=== PATIENT | female | born 1990 | race Caucasian/White ===

== ENCOUNTER 2019-12-20 00:33 | Outpatient (CLI) | payer BC, SELFPAY ==
[2019-12-20 18:40] LABS: SARS-CoV-2 RNA PCR Negative
== END 2019-12-20 00:34 | disposition home or self-care (01) ==
LOC: ANHCOVIDDT 00:33
PROVIDERS: PCP Internal Medicine; Visit Provider Obstetrics & Gynecology
DX: Z01.818 Encounter for other preprocedural examination (principal); Z11.59 Encounter for screening for other viral diseases
CPT/HCPCS: 87635; C9803; U0003

== ENCOUNTER 2019-12-20 09:46 | Outpatient (CLI) | payer BC, SELFPAY ==
[2019-12-20 10:06] LABS: Basophils Percent Auto 0.3 % (0.2-1.2); Eosinophils Absolute Auto 0.1 K/mm3 (0-0.3); Eosinophils Percent Auto 1.4 % (0-4.4); Hematocrit 37.6 % (37.0-47.0); Hemoglobin 12.6 g/dL (12.0-15.0); Immature Granulocyte Absolute 0.01 K/mm3 (0.00-0.031); Immature Granulocyte Percent A 0.2 % (0-0.5); Lymphocytes Absolute Auto 2.21 K/mm3 (0.9-3.2); Lymphocytes Percent Auto 35.4 % (18.3-44.2); Mean Corpuscular HGB Conc 33.5 g/dl (32-36); Mean Corpuscular Hemoglobin 28.8 pg (26-34); Mean Platelet Volume 10.3 fl (7.4-10.4); Monocytes Absolute Auto 0.5 K/mm3 (0.1-0.6); Monocytes Percent Auto 8.5 % (2.6-8.5); Neutrophils Absolute Auto 3.4 K/mm3 (1.3-6.7); Neutrophils Percent Auto 54.2 % (45.5-73.1); Platelet Count Result 238 k/mm3 (150-375); Red Blood Count 4.37 M/mm3 (4.2-5.4); White Blood Count 6.2 K/mm3 (4.5-10.0)
== END 2019-12-20 09:47 | disposition home or self-care (01) ==
PROVIDERS: PCP Internal Medicine; Visit Provider Obstetrics & Gynecology
DX: Z01.818 Encounter for other preprocedural examination (principal); R10.2 Pelvic and perineal pain
CPT/HCPCS: 36415; 85025; 86850; 86900; 86901

== ENCOUNTER 2019-12-23 01:08 | Day surgery (SDC) | payer BC, SELFPAY ==
[2019-12-19 09:22] VITALS: BMI 26.4
--- NOTE | 2019-12-22 07:17 | PM.IMHP ---
H&P: HPI History of Present Illness Chief complaint: Pelvic Pain, Irregular Bleeding, Enlarged Uterus, Narrative: Leanna Dewey is a 29 year old female 3 para 3 who is admitted for robotic hysterectomy and bilateral salpingectomy. She has continued with severe pain dyspareunia and bleeding the been refractory to medical therapy. She has a history of endometriosis. She refused any further medical treatment as all other treatments have failed. Risks and benefits reviewed including but not exclusive of , aspiration pneumonia, bleeding, transfusion, perforation injury to bowel, bladder, ureters, or other internal organs with need for laparotomy. She voiced good understanding. She had all questions answered. She asked to proceed Review of Systems Review of Systems: All systems reviewed & are unremarkable except as noted in HPI and below PMFSH Family History Family History Other Hypertension Social History Social History Smoking status: Never smoker Alcohol intake: current Meds Home Medications and Allergies Home Medications Medication Instructions Recorded Confirmed Type No Home Medications 12/19/19 12/19/19 History Allergies Allergy/AdvReac Type Severity Reaction Status Date / Time Penicillins Allergy Unknown Hives Verified 12/19/19 09:23 Exam Const: General: no acute distress Eyes: General: appearance normal, both eyes and all related structures Neck: Neck: supple and no JVD Thyroid: thyroid normal Resp: Effort & Inspection: normal respiratory effort Auscultation: clear to auscultation bilaterally Cardio: Rate: regular rate Rhythm: regular rhythm GI: Inspection: non-distended GI Palp: Yes Soft to palpation, No Tenderness to palpation present (GI) and No Guarding due to palpation present (GI) Auscultation: normal bowel sounds : General: Yes bladder normal to inspection External Female Exam: normal appearance of the urethra Speculum Exam - Vagina: normal appearance of the vagina Speculum Exam - Cervix: normal appearance of the cervix and Cervical tenderness present Bimanual exam- vagina & uterus: normal bimanual exam ( the uterus is enlarged and extremely tender) Bimanual Exam- Adnexa, other: tender Skin: General skin exam: no rashes or lesions noted Extrem: General: normal to inspection and no edema Psych: Mental Status: mental status grossly normal Affect: normal affect Assessment and Plan Additional Plan impression: Pelvic pain /enlarged uterus / dyspareunia / bleeding refractory to medical therapy Plan: Roboti
--- NOTE | 2019-12-22 07:23 | P.HP_ITS ---
H&P: HPI History of Present Illness Chief complaint: Pelvic Pain, Irregular Bleeding, Enlarged Uterus, Narrative: Leanna Dewey is a 29 year old female was admitted for robotic total vaginal direct median bilateral salpingectomies. She complains of irregular bleeding pain enlarged uterus and dyspareunia. Alte rnatives have been reviewed and she has had no success with medical therapy. Risks and benefits including but not exclusive of , aspiration pneumonia, bleeding, transfusion, perforation injury to bowel, bladder, ureters, or other internal organs with need for open laparotomy. She voiced good understanding. She had all questions answered. She received the [employer] handout entitled hysterectomy as well as div inch E handout. She asked to proceed Review of Systems Review of Systems: All systems reviewed & are unremarkable except as noted in HPI and below PMFSH Family History Family History Other Hypertension Social History Social History Smoking status: Never smoker Alcohol intake: current Meds Home Medications and Allergies Home Medications Medication Instructions Recorded Confirmed Type No Home Medications 12/19/19 12/19/19 History Allergies Allergy/AdvReac Type Severity Reaction Status Date / Time Penicillins Allergy Unknown Hives Verified 12/19/19 09:23 Exam Const: General: no acute distress Eyes: General: appearance normal, both eyes and all related structures Neck: Neck: supple and no JVD Thyroid: thyroid normal Resp: Effort & Inspection: normal respiratory effort Auscultation: clear to auscultation bilaterally Cardio: Rate: regular rate Rhythm: regular rhythm GI: Inspection: non-distended GI Palp: Yes Soft to palpation, No Tenderness to palpation present (GI) and No Guarding due to palpation present (GI) Auscultation: normal bowel sounds : General: Yes bladder normal to inspection External Female Exam: normal external appearance Speculum Exam - Vagina: normal appearance of the vagina, vaginal bleeding and tenderness Speculum Exam - Cervix: normal appearance of the cervix and Cervical tenderness present Bimanual exam- vagina & uterus: uterine size normal ( uterus enlarged and very tender) Bimanual Exam- Adnexa, other: tender Skin: General skin exam: no rashes or lesions noted Extrem: General: normal to inspection and no edema Psych: Mental Status: mental status grossly normal Affect: normal affect Assessment and Plan Additional Plan impression: Enlarged uterus /pelvic pain / dyspareunia /bleeding refractory to medical therapy Plan: Robotic total vaginal hysterectomy and bilateral salpingectomies
[2019-12-23] VITALS (18 sets, daily range): BP systolic 80–115; BP diastolic 44–69; PULSE 67–96; RESP 12–19; TEMP 36.4–37.1; O2SAT 95–100
--- NOTE | 2019-12-23 06:41 | WPDHPUPDATE1 ---
History and Physical Update Update Date/Time: 12/23/19 06:41 History and Physical has been reviewed, including an updated exam of the patient. There are NO changes in the patient's condition. Risks, benefits, and alternatives have been discussed and questions answered. Patient agrees to proceed with procedure.
[2019-12-23] MEDS: LACTATED RINGERS 1,000 ML 30 ML IV CONT (06:45)
--- NOTE | 2019-12-23 06:57 | P.PNAN_ITS ---
Anes - Initial Pre Proc Eval Procedure: Operation Date: 12/23/19 07:30 Proposed Procedures p Robotic Assisted Vaginal Hysterectomy With Bilateral Salpingectomies - Joni Manning MD Date/Time: 12/23/19 06:57 Surgeon: Joni Manning MD Pre Op Diagnosis: Pelvic Pain, Irregular Bleeding, Enlarged Uterus, Patient Data Age: 29 Gender: F Height: 5 ft Weight: 61.24 kg Allergies Allergy/AdvReac Type Severity Reaction Status Date / Time Penicillins Allergy Unknown Hives Verified 12/19/19 09:23 Home Medications Medication Instructions Recorded Confirmed Type hydrocodone-acetaminophen [[place]] 1 tablet PO Q4H PRN #30 tablet 12/23/19 Rx Patient hx anesthesia problems: none Family hx anesthesia problems: none PMFSH Surgical History Surgical History (Updated 12/23/19 @ 06:58 by Joni Ribera MD) H/O laparoscopy Family History Family History Other Hypertension Social History Social History Smoking status: Never smoker Alcohol intake: current Anes - Eval Final PreProcedure Day of Procedure 12/23/19 06:57 Patient weight: overweight Heart: regular rate and rhythm Lungs: clear to auscultation Airway: Mallampati scale class II Neurological: alert and oriented Last oral intake: >/= 8 hours ASA classification: II Emergent: no Anesthetic plan: proceed Anesthesia type and monitoring: general ETT and standard monitoring Informed Consent: The patient's anesthetic plan and its attendant risks and benefits were discussed with the patient/family/POA. Questions were solicited and answers provided to the satisfaction of the patient/family/POA.
[2019-12-23] MEDS: MIDAZOLAM HCL 2 MG/2 ML VIAL IV PUSH (07:10)
[2019-12-23] MEDS: CLINDAMYCIN 900 MG/NS 50 ML 900 MG/50 ML PIGGYBACK 50 MG IVPB (08:00)
[2019-12-23] MEDS: KETOROLAC 30 MG/ML VIAL (*BKC) IV PUSH ×2 (08:40→10:45)
--- NOTE | 2019-12-23 08:40 | P.OP_ITS ---
Procedure Note - Detailed Date of procedure: 12/23/19 Pre-op diagnosis: Pelvic Pain, Irregular Bleeding, Enlarged Uterus, Surgeon: Joni Manning MD Postop diagnosis: Pelvic pain bleeding refractory to medical therapy, enlarged uterus Procedure: Robotic total vaginal hysterectomy and bilateral salpingectomies Anesthesia: General endotracheal EBL: 50cc Complications: None Findings: Markedly enlarged uterus. Normal-appearing ovaries and tubes. The uterus was markedly adherent anterior to the anterior wall and the bladder Description procedure: The patient is prepped draped in the normal sterile fashion placed in the dorsal lithotomy position. Under excellent general endotracheal anesthesia weighted speculum placed in posterior fornix of vagina. Anterior lip of the cervix was grasped with single-tooth tenaculum and the uterus sounded to 10cm. Serial dilatation with fragmented dilators performed followed by passage of the 10. YONI and the 2. And half cold cup. Next the 16 [place] catheter was placed in the urine drained and noted to be clear. The remainder the instruments removed. Gloves were changed. A supraumbilical incision was made. Veress needle passed in the abdomen. The abdomen filled with CO2 gas [id number]. The 8mm trocar was advanced in the abdomen. The downside was visualized no injury seen. The patient placed in Trendelenburg and right and left lateral quadrant incisions made. The 8mm trocars were advanced under direct visualization assuring no injury. Right upper quadrant incision made the 10mm trocar advanced under direct visualization assuring no injury. The robot was docked. Attention was turned to the console. The left round ligament was grasped, b urned, cut. Anteriorly the bladder was markedly adherent to the fundus of the uterus and sharp dissection was necessary with occasional cautery to bring this down caudally from the uterus the cervix. This was brought across to the opposite round ligament which was clamped, burned, cut. Next the left fallopian tube was teased away by sharp dissection and this was then performed on the right. The left utero-ovarian ligament was skeletonized conserve left ovary clamped, burned, cut and brought to the level of risk cut round ligament in like fashion the cardinal labs are in like fashion the utero-ovarian ligament to conserve the right side was clamped, burned, cut brought to the previously cut round ligament. Next the left cardinal and broad ligaments were serially skeletonized clamped burned cut brought down lateral edge of the uterus until the markedly enlarged serpentine blood vessels were seen. These were individually clamped, burned, cut. In like fashion the cardinal and broad ligaments on the right were serially skeletonized. Clamped, burned, cut brought down to level of blood vessels on the right these as well were large and serpentine the they were individually clamped, burned, cut. Blanching the uterus was seen at that point. A colpotomy incision was made in the cervix uterus and tubes removed through the vagina. The vagina was then closed with continuous running 0V lock from lateral edge to lateral edge back to midline. Irrigation was undertaken to clear. Blood loss was estimated at50cc. All pedicles appeared dry. The robot was undocked. The gas removed from the abdomen. The incisions closed with 4 O Monocryl and glue. The patient went to recovery in satisfactory condition. All sponge, needle, instrument counts were correct. There were no immediate complications
[2019-12-23] MEDS: DEXTROSE 5%/LACTATED RINGERS 1,000 ML 125 ML IV CONT (10:46)
--- NOTE | 2019-12-23 11:01 | PC.NURSE ---
1023-This patient, Leanna Dewey, was admitted to OB 2nd Floor Room 289-00. Patient oriented to hospital policies and general routines including ID bracelet, bed and alarms, visiting hours, pain management, procedures, bathroom and other care routines, personal items, smoking policy, room service/diet, and visiting hours. Valuables list has been completed. Information on how to activate the Rapid Response Team has been discussed. Patient is encouraged to report perceived risks to care and to ask questions if they do not understand what they are told or what they should do.
[2019-12-23] MEDS: MORPHINE SULFATE 4 MG/ML INJ IV PUSH (13:10)
[2019-12-23] MEDS: SIMETHICONE 80 MG TAB.CHEW PO ×2 (13:15→16:58)
[2019-12-23] MEDS: IBUPROFEN 600 MG TABLET PO ×2 (16:51→22:42)
[2019-12-23] MEDS: DOCUSATE SODIUM 100 MG CAPSULE PO (16:51)
[2019-12-24 04:00] VITALS: BP 86/48; PULSE 70; RESP 16; TEMP 36.6; O2SAT 100
[2019-12-24 04:59] LABS: Basophils Percent Auto 0.3 % (0.2-1.2); Eosinophils Percent Auto 0.2 % (0-4.4); Hematocrit 31.7 % (37.0-47.0); Hemoglobin 10.5 g/dL (12.0-15.0); Immature Granulocyte Absolute 0.03 K/mm3 (0.00-0.031); Immature Granulocyte Percent A 0.3 % (0-0.5); Lymphocytes Absolute Auto 1.78 K/mm3 (0.9-3.2); Lymphocytes Percent Auto 14.9 % (18.3-44.2); Mean Corpuscular HGB Conc 33.1 g/dl (32-36); Mean Corpuscular Hemoglobin 29.1 pg (26-34); Mean Corpuscular Volume 87.8 fl (80-100); Mean Platelet Volume 10.8 fl (7.4-10.4); Monocytes Absolute Auto 0.9 K/mm3 (0.1-0.6); Monocytes Percent Auto 7.9 % (2.6-8.5); Neutrophils Absolute Auto 9.1 K/mm3 (1.3-6.7); Neutrophils Percent Auto 76.4 % (45.5-73.1); Platelet Count Result 204 k/mm3 (150-375); Red Blood Count 3.61 M/mm3 (4.2-5.4); Red Cell Distribution Width 12.1 % (11.5-14.5); White Blood Count 11.9 K/mm3 (4.5-10.0)
--- NOTE | 2019-12-24 05:38 | PM.DS ---
DS: Admitting Diagnosis Admitting Diagnosis Admitting Diagnosis: Pelvic and perineal pain DS: Summary Hospital Course Hospital Course: 29 yo F admitted after robotic assisted total laparoscopic hysterectomy and bilateral salpingectomy for abnormal uterine bleeding and dyspareunia. The above procedure was performed with no complications. She is doing well post op. She states her pain is well controlled with PO medications. She reports minimal bleeding. She is ambulating up to the chair. Her serrano catheter was removed. She is tolerating PO without N/V. She reports passing flatus. Status at Discharge Overall status at discharge: patient is progressing back to baseline Time Spent with Patient Time attestation: Total time spent providing and/or coordinating discharge services: Time spent: Less than 30 minutes Exam Const: General: comfortable and no acute distress Limitations: no limitations Resp: Effort & Inspection: normal respiratory effort Auscultation: clear to auscultation bilaterally Cardio: Rate: regular rate Rhythm: regular rhythm GI: Inspection: non-distended GI Palp: Yes Soft to palpation, Yes Tenderness to palpation present (GI) (milder tenderness to deep palpation) and No Guarding due to palpation present (GI) Auscultation: normal bowel sounds Other: incisions C/D/I covered with dermabond Urinary Catheter: Urinary Catheter: urine clear Skin: General skin exam: normal color Extrem: General: normal to inspection Psych: Mental Status: mental status grossly normal Affect: normal affect DS: Data Data Completed and Pending Pending studies at discharge: Pending at discharge 12/23/19 08:42 Surgical [PTH] Routine Labs on day of discharge: Labs from last 24 hours 12/24/19 04:10 WBC 11.9 H RBC 3.61 L Hgb 10.5 L Hct 31.7 L MCV 87.8 MCH 29.1 MCHC 33.1 RDW 12.1 Plt Count 204 MPV 10.8 H Immature Gran % (Auto) 0.3 Neut % (Auto) 76.4 H Lymph % (Auto) 14.9 L [place] % (Auto) 7.9 Eos % (Auto) 0.2 Baso % (Auto) 0.3 Lymph # (Auto) 1.78 [place] # (Auto) 0.9 H Eos # (Auto) 0.0 Baso # (Auto) 0.0 Abs Immat Gran (auto) 0.03 Absolute Neuts (auto) 9.1 H Absolute Nucleated RBC 0.0 Nucleated RBC % 0.0 Discharge Plan Discharge Patient Disposition: Home, Self-Care Discharge Instructions: call or return for temperature >100.4, bleeding >2 pads/hr for 2 hrs, pain not controlled with medications Patient Instructions: Laparoscopic Hysterectomy (DC) Stand Alone Forms: General Discharge Instructions Follow-up/Referrals: Joni Manning MD [Physician] - Discharge Medications: New hydrocodone-acetaminophen [[place]] 5-325 mg tablet 1 tablet PO Q4H PRN (Reason: pain) Qty: 30 RF: 0 Primary Care Provider: Jovanna Lancaster Attending physician on admission: Joni Manning
[2019-12-24 07:00] VITALS: BP 82/48; PULSE 71; RESP 18; TEMP 37.6
[2019-12-24] MEDS: IBUPROFEN 600 MG TABLET PO (07:19)
[2019-12-24] MEDS: DOCUSATE SODIUM 100 MG CAPSULE PO (07:20)
[2019-12-24] MEDS: ENOXAPARIN 40 MG/0.4 ML SYRINGE SUB-Q (07:20)
== END 2019-12-24 09:36 | disposition home or self-care (01) ==
LOC: ANHSURGERY 08:29 → ANHOB2 10:22
PROVIDERS: PCP Internal Medicine; Visit Provider Obstetrics & Gynecology
PROC: (CPT 58552; principal; 2019-12-23 07:30)
DX: R10.2 Pelvic and perineal pain (principal); N80.0 Endometriosis of uterus; N93.9 Abnormal uterine and vaginal bleeding, unspecified
CPT/HCPCS: 58552; S2900; 36415; 85025; 88307; 99199; A9270; J0330; J1100; J1580; J1650; J1885; J2250; J2270; J2405; J2704; J2710; J3010; J7030; J7120; J7121

== ENCOUNTER 2020-04-06 10:47 | Outpatient (CLI) | payer BC, SELFPAY ==
--- NOTE | ~2020-04-06 | US_ITS ---
EXAMINATION: US thyroid DATE: 04/06/2020 11:08 INDICATION: Hypothyroidism TECHNIQUE: Multiple ultrasound images of the thyroid were obtained. COMPARISON: 02/20/2017 FINDINGS: The right thyroid lobe measures 4.0 x 1.1 x 1.0 cm. The left thyroid lobe measures 4.1 x 1.1 x 1.3 c m. Thyroid isthmus measures 5 mm in thickness. No discrete nodules identified. There is normal echote xture, echogenicity and vascular flow throughout the thyroid gland. IMPRESSION: 1. Normal thyroid ultrasound. Reviewed, dictated and finalized at location B.
== END 2020-04-06 10:48 | disposition home or self-care (01) ==
LOC: CHSIMG 10:51
PROVIDERS: PCP Internal Medicine; Visit Provider Internal Medicine
DX: E03.9 Hypothyroidism, unspecified (principal); E04.9 Nontoxic goiter, unspecified
CPT/HCPCS: 76536

== ENCOUNTER 2020-07-16 11:19 | Outpatient (CLI) | payer BC, SELFPAY ==
[2020-07-16 12:25] LABS: SARS-CoV-2 Ag Negative (Negative)
== END 2020-07-16 11:20 | disposition home or self-care (01) ==
LOC: CHSLAB 11:21
PROVIDERS: PCP Internal Medicine; Visit Provider Internal Medicine
DX: Z20.828 Contact with and (suspected) exposure to other viral communicable diseases (principal)
CPT/HCPCS: 87426

== ENCOUNTER 2022-09-17 21:48 | Emergency (ER) | payer BC, SELFPAY ==
--- NOTE | 2022-09-17 22:07 | ED_ITS ---
HPI - Chest Pain General Chief Complaint: Upper Respiratory Infection Stated Complaint: pain under ribs Time Seen by Provider: 09/17/22 21:56 Related Data Allergies Allergy/AdvReac Type Severity Reaction Status Date / Time Penicillins Allergy Severe Hives Verified 12/23/19 07:43 [facility] Surgical History Surgical History (Updated 12/23/19 @ 06:58 by Joni Ribera MD) H/O laparoscopy Family History Family History Other Hypertension Social History Social History Smoking status: Never smoker Alcohol intake: current Discharge Plan Discharge Prescriptions: No Action hydrocodone-acetaminophen [[place]] 5-325 mg tablet 1 tablet PO Q4H PRN (Reason: pain) Qty: 30 0RF Follow-up/Referrals: Jovanna Lancaster MD [Primary Care Provider] -
--- NOTE | 2022-09-17 22:15 | ED.ABDPAIN ---
HPI - Abdominal Pain General Chief Complaint: Abdominal Pain Stated Complaint: pain under ribs Time Seen by Provider: 09/17/22 21:56 Source: patient Mode of arrival: ambulatory Limitations: no limitations History of Present Illness HPI narrative: 32-year-old female status post robotic hysterectomy/ salpingectomy presents to the ER with -- right upper quadrant abdominal pain made worse by eating for the past 3 days. No nausea/ vomiting. No diarrhea. No fever. MD elicited complaint: abdominal pain Pertinent past history: none Onset (ago): day(s) ( Started 3 days ago) Pain Consistency: intermittent Location: RUQ Severity: moderate Quality: aching Radiation: none Migration to: no migration Exacerbating factors: eating Relieving factors: nothing Associated symptoms: denies other symptoms Related Data Home Medications Medication Instructions Recorded Confirmed venlafaxine 75 mg capsule,extended 75 mg PO DIRECTED 09/17/22 09/17/22 release 24 hr Allergies Allergy/AdvReac Type Severity Reaction Status Date / Time Penicillins Allergy Severe Hives Verified 09/17/22 22:33 Review of Systems Review of Systems: All systems reviewed & are unremarkable except as noted in HPI and below Constitutional: Constitutional: Reports as per HPI and Reports no additional constitutional complaints Eyes: Eyes: Reports as per HPI and Reports no additional eye complaints ENT: Reports system reviewed and no additional complaints, except as documented and Reports as per HPI Cardiovascular: Cardiovascular: Reports as per HPI and Reports no additional cardiovascular complaints Respiratory: Respiratory: Reports as per HPI and Reports no additional respiratory complaints Gastrointestinal: Gastrointestinal: Reports as per HPI, Reports no additional gastrointestinal complaints and Reports abdominal pain Genitourinary: Genitourinary: Reports no additional female genitourinary complaints and Reports as per HPI Musculoskeletal: Musculoskeletal: Reports no additional musculoskeletal complaints and Reports as per HPI Integumentary/Breasts: Skin/Breast: Reports system reviewed and no additional complaints, except as docu and Reports as per HPI Neurologic: Reports system reviewed and no additional complaints, except as documented and Reports as per HPI Psychiatric: Psychiatric: Reports no additional psychiatric complaints and Reports as per HPI Endocrine: Endocrine: Reports no additional endocrine complaints and Reports as per HPI Hematologic/Lymphatic: Hematologic/Lymphatic: Reports no additional hematologic/lymphatic complaints and Reports as per HPI Allergic/Immunologic: Allergic/Immunologic: Reports no additional allergic/immunologic complaints and Reports as per HPI [facility] Surgical History Surgical History H/O laparoscopy Family History Family History Other Hypertension Social History Social History Smoking status: Never smoker Alcohol intake: current Exam Const: General: no acute distress Orientation/consciousness: patient oriented x3 Limitations: no limitations HENMT: Head: normal to inspection Ears: external ears normal Face/Nose/Sinus: Normal external nose present Face and sinus: normal facial exam Throat: posterior oropharynx normal Eyes: Conjunctivae: conjunctivae normal Pupils: Equal, round and reactive pupils present EOM: EOMs intact bilaterally Direct Ophthalmoscopy: no photophobia Neck: Neck: normal visual inspection, no lymphadenopathy and no meningeal signs Chest: Chest palpation & inspection: normal inspection of the chest Resp: Effort & Inspection: normal respiratory effort Auscultation: clear to auscultation bilaterally Cardio: Rate: regular rate Rhythm: regular rhythm GI: GI Palp: Yes Soft to palpation Other: tende
[2022-09-17 22:20] VITALS: BP 110/70; PULSE 74; RESP 18; TEMP 36.8; O2SAT 97
[2022-09-17 22:51] LABS: Basophils Absolute Auto 0.03 K/mm3 (0.00-0.10); Basophils Percent Auto 0.4 % (0.0-1.0); Eosinophils Absolute Auto 0.15 K/mm3 (0.02-0.50); Eosinophils Percent Auto 1.9 % (1.0-6.0); Hematocrit 36.3 % (35.0-49.0); Hemoglobin 11.9 g/dL (12.0-15.0); Immature Granulocyte Absolute 0.02 K/mm3 (0.00-0.00); Immature Granulocyte Percent A 0.3 % (0.0-0.0); Lymphocytes Absolute Auto 3.11 K/mm3 (1.10-4.50); Mean Corpuscular HGB Conc 32.8 g/dL (32.0-36.0); Mean Corpuscular Hemoglobin 29.5 pg (27.0-31.0); Mean Corpuscular Volume 89.9 fL (78.0-102.0); Mean Platelet Volume 9.8 fl (9.2-11.8); Monocytes Absolute Auto 0.64 K/mm3 (0.10-0.90); Monocytes Percent Auto 8.2 % (2.0-11.0); Neutrophils Absolute Auto 3.8 K/mm3 (1.7-7.2); Neutrophils Percent Auto 49.2 % (50.0-70.0); Platelet Count Result 255 K/mm3 (150-420); Red Blood Count 4.04 M/mm3 (4.20-5.40); Red Cell Distribution Width 12.4 % (11.6-14.4); White Blood Count 7.8 K/mm3 (4.8-10.8)
[2022-09-17 23:08] LABS: Alanine Aminotransferase 12 U/L (14-59); Albumin Level 3.4 g/dL (3.4-5.0); Alkaline Phosphatase 74 U/L (46-116); Anion Gap 3 mmol/L (8-16); Aspartate Amino Transferase 15 U/L (15-37); Bilirubin,Total 0.3 mg/dL (0.00-1.00); Blood Urea Nitrogen 11 mg/dL (7-18); Calcium 8.3 mg/dL (8.5-10.1); Carbon Dioxide 32 mmol/L (21-32); Chloride 101 mmol/L (98-108); Estimated CRCL calculation 70 ml/min; Estimated Glomerular Filt Rate > 60; Glucose 107 mg/dL (70-99); Lipase 43 U/L (16-77); Osmolality Calculated 281 mOsm/kg (285-295); Potassium 3.6 mmol/L (3.5-5.1); Sodium 136 mmol/L (136-145); Total Protein 7.6 g/dL (6.4-8.2); Troponin I 4.9 ng/L (0.00-60.4)
[2022-09-17 23:09] LABS: Partial Thromboplastin Time 28.5 SEC (23.90-30.70)
[2022-09-17 23:12] LABS: Lactic Acid Reflex 0.5 mmol/L (0.4-2.0)
[2022-09-17] MEDS: PANTOPRAZOLE 40 MG TABLET PO (23:27)
[2022-09-19 10:23] LABS: Ferritin 51 ng/mL (8-252); Free T3 2.53 pg/mL (2.18-3.98); Free T4 Free Thyroxine 0.78 ng/dL (0.76-1.46); Iron 42 ug/dL (50-170); Thyroid Stimulating Hormone 10.48 uIU/mL (0.36-3.74)
== END 2022-09-17 23:32 | disposition home or self-care (01) ==
PROVIDERS: Emergency Provider Internal Medicine Critical Care Medicine; PCP Internal Medicine
DX: R10.11 Right upper quadrant pain (principal); E03.9 Hypothyroidism, unspecified; D64.9 Anemia, unspecified; Z90.710 Acquired absence of both cervix and uterus
CPT/HCPCS: 36415; 80053; 82728; 83540; 83605; 83690; 84439; 84443; 84481; 84484; 85025; 85730; 99284; A9270

== ENCOUNTER 2022-09-22 08:15 | Outpatient (CLI) | payer BC, SELFPAY ==
--- NOTE | ~2022-09-22 | US_ITS ---
US right upper quadrant INDICATION: Abdomen pain. PROCEDURE: Realtime right upper abdominal ultrasound. COMPARISON: No prior studies for comparison. FINDINGS: The pancreas is normal without focal mass or pancreatic ductal dilation. Liver echotexture is normal without focal mass or intrahepatic biliary dilatation. There is normal directional flow i n the portal vein. There are gallstones. No pericholecystic fluid. Common bile duct measures 2 mm. No sonographic Murp hy's sign. IMPRESSION: 1: Cholelithiasis. Reviewed, dictated and finalized at location B. 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
== END 2022-09-22 08:16 | disposition home or self-care (01) ==
LOC: CHSIMG 08:17
PROVIDERS: PCP Internal Medicine; Visit Provider Internal Medicine
DX: R10.11 Right upper quadrant pain (principal); K80.20 Calculus of gallbladder without cholecystitis without obstruction
CPT/HCPCS: 76705

== ENCOUNTER 2022-10-07 00:37 | Day surgery (SDC) | payer BC, SELFPAY ==
[2022-10-06 08:53] VITALS: BMI 31.2
--- NOTE | 2022-10-06 08:57 | PC.NURSE ---
Report to the Outpatient Waiting Room, entrance under the green pavilion located off [facility], at time 1230 on date 10/07/22. Planned Procedure Time: 1430. Time changes happen often and if your time is changed the preop area will call you the afternoon before. - You and your visitor will be asked to self-screen and do not enter if you have any COVID symptoms. - Only one visitor is requested with a max of two and NO children visitors are allowed at this time. - The patient visitor may be requested to leave or wait in car when not with patient due to distancing restrictions. - A mask is optional within the hospital at this time. Patients may have clear liquids (water, carbonated beverages, clear teas, apple juice) until 3 hours prior to surgery with a maximum of 20 ounces. - No food from midnight until time of surgery Take the following medications with a SIP of water the morning of surgery: VENLAFAXINE, PAIN PILL IF NEEDED DO NOT STOP ANY OF YOUR OTHER PRESCRIPTION MEDICATIONS PRIOR TO SURGERY EXCEPT THE FOLLOWING Medications to discontinue per physician: N/A Date to take last dose: N/A Please no make-up, nail english, hairspray, perfume, deodorant, or body powder the day of surgery. No jewelry (including any body piercings) or valuables the day of surgery, leave them at home. Please take a shower or bath the night before, or the morning of, surgery with an antibacterial soap (HIBICLENS). Wear comfortable, loose fitting clothing. - Jewelry must be removed prior to entering the operating room. Rings and piercings that are not removed may be cut off. - The hospital will not accept responsibility for valuables. - Please leave all valuables, including medications, at home the day of surgery. If you are going home after surgery, a licensed [place] driver must drive you home. - NO public transportation without another adult if you receive anesthesia. - We recommend that an adult stay with you for 24 hours following discharge. - We also recommend that you do not drive, make important decision, drink alcoholic beverages, or take any drugs that were not prescribed by your health care provider for at least 24 hours after your discharge time. Follow any additional instructions given to you from your surgeon. If you or anyone in your household have experienced Covid symptoms in the past week, please notify your surgeon or the nurse liaison at the phone number below for possible testing. Telephone instructions given to MELLY DEO and asked if any additional questions and then verbalized understanding. Patient advised to call surgeon office or pre surgery nurse liaison [phone] if any additional questions.
--- NOTE | 2022-10-06 14:52 | P.PNAN_ITS ---
Anes - Initial Pre Proc Eval Procedure: Operation Date: 10/07/22 14:30 Proposed Procedures p Laparoscopic Cholecystectomy, Possible Open Cholecystectomy - John Rogers MD Date/Time: 10/06/22 14:52 Surgeon: John Rogers MD Pre Op Diagnosis: symptomatic cholelithiasis Patient Data Age: 32 Gender: F Height: 1.52 m Weight: 72.6 kg Allergies Allergy/AdvReac Type Severity Reaction Status Date / Time Penicillins Allergy Severe Hives Verified 10/06/22 08:52 Home Medications Medication Instructions Recorded Confirmed Type venlafaxine 75 mg capsule,extended 75 mg PO DIRECTED 09/17/22 10/06/22 History release 24 hr hydrocodone 10 mg-acetaminophen See Rx Instructions PO Q6H PRN 10/03/22 10/06/22 Rx 325 mg tablet pain #6 tabs Patient hx anesthesia problems: none Family hx anesthesia problems: none Results Review: All pre-operative results and documents have been reviewed as part of the pre- operative evaluation. PMFSH Past Medical History Medical History Hypothyroid Surgical History Surgical History History of delivery x3 History of hysterectomy Family History Family History Other Hypertension Social History Social History Smoking status: Never smoker Alcohol intake: never Alcohol use details: rare Substance use: never Substance use type: does not use Living arrangements: with family Occupation/Education: occupation Additional occupation/education comments: [employer] Spiritual care concerns: No Anes - Eval Final PreProcedure Day of Procedure 10/06/22 14:52 Patient weight: obese Heart: regular rate and rhythm Lungs: clear to auscultation Airway: Mallampati scale class II Neurological: alert and oriented Last oral intake: >/= 8 hours ASA classification: II Emergent: no Anesthetic plan: proceed Anesthesia type and monitoring: general ETT and standard monitoring Results Review: All pre-operative results and documents have been reviewed as part of the pre- operative evaluation. Informed Consent: The patient's anesthetic plan and its attendant risks and benefits were discussed with the patient/family/POA. Questions were solicited and answers provided to the satisfaction of the patient/family/POA.
[2022-10-07] VITALS (8 sets, daily range): BP systolic 100–111; BP diastolic 58–69; PULSE 81–98; RESP 10–16; TEMP 36.6–36.9; O2SAT 96–100; BMI 30.9
[2022-10-07] MEDS: LACTATED RINGERS 1,000 ML 30 ML IV CONT ×2 (12:50→16:48)
[2022-10-07] MEDS: ACETAMINOPHEN 500 MG TABLET 1000 MG PO (13:01)
[2022-10-07] MEDS: KETOROLAC 15 MG/ML VIAL (*BKC) IV PUSH (13:02)
[2022-10-07 13:11] LABS: Amylase 61 U/L (30-110)
--- NOTE | 2022-10-07 14:20 | SUR.PREOP ---
1420- Rounded on patient and offered restroom, patient declining use of restroom at this time. Informed patient and spouse, Yariel procedure start time will be delayed and they verbalized understanding.
--- NOTE | 2022-10-07 15:23 | WPDHPUPDATE1 ---
History and Physical Update Update Date/Time: 10/07/22 15:23 History and Physical has been reviewed, including an updated exam of the patient. There are NO changes in the patient's condition. Risks, benefits, and alternatives have been discussed and questions answered. Patient agrees to proceed with procedure.
[2022-10-07] MEDS: ceFAZolin 2 GM/D5W 50 ML 2 GM/50 ML BAG IVPB (15:41)
[2022-10-07] MEDS: LIDO 1%/EPINEPHRINE 1:100,000 20 ML VIAL 15 ML INFILTRATE (16:00)
[2022-10-07] MEDS: BUPIVACAINE/EPINEPHRINE 0.25% 50 ML VIAL 15 ML INFILTRATE (16:20)
[2022-10-07] MEDS: fentaNYL CITRATE INJ (*CRX) 100 MCG/2 ML VIAL 25 MCG IV PUSH ×5 (17:13→17:38)
[2022-10-07] MEDS: oxyCODONE HCL (*CRX) 5 MG TAB IR PO (17:57)
--- NOTE | 2022-10-07 19:07 | W.PM.PROC2 ---
Procedure Note - Detailed Date of Procedure 10/07/22 Pre-op Diagnosis symptomatic cholelithiasis Post-op Diagnosis Other ( Mild chronic cholecystitis secondary to cholelithiasis) Procedure Performed Laparoscopic cholecystectomy Surgeon John Rogers MD Anesthesia General Indications Patient is a 32-year-old female who has been having daily right upper quadrant abdominal pain associated with eating with at least 1 visit to the emergency room. Workup as revealed multiple gallstones within the gallbladder without evidence of acute cholecystitis on abdominal ultrasound. She presents now for elective laparoscopic cholecystectomy. Findings Multiple large gallstones within the gallbladder . Minimal chronic thickening of gallbladder wall. Description of Procedure After informed consent was obtained the patient was brought to the operating room where she was placed in supine position and general endotracheal anesthesia was administered. The abdomen was then prepped and draped in usual sterile fashion. A time-out was then performed correctly identifying the patient as well as procedure to be performed and verified she was given perioperative IV antibiotics. I 1st started by placing a 5mm Optiview port left upper quadrant with a direct optical insertion. Once inside the abdomen insufflated to an adequate pneumoperitoneum of 15mmHg of CO2. There were no adhesions around the umbilicus and so I placed a 5mm Optiview port in the periumbilical position under direct visualization laparoscopic was then switched to the periumbilical trocar port and in looking into the upper portion of the abdomen I placed a 10mm epigastric trocar port and 2 more 5mm right subcostal trocar ports all under direct visualization. The gallbladder was mildly distended and had minimal chronic thickening of the wall. There were no omental, duodenal, colonic, or gastric adhesions to the gallbladder. A laparoscopic grasper was used to hold the gallbladder at the dome and the gallbladder was elevated over the right half of the liver towards the right shoulder. A 2nd laparoscopic graspers hold the gallbladder at the infundibulum and then I proceeded to strip down the visceral peritoneum off of the infundibular gallbladder with a [place] dissector until I identified the cystic duct. The cystic duct was then dissected out circumferentially. The cystic artery was in its usual location posterior medial to the cystic duct but it was short and I could easily see the right hepatic artery. I very carefully dissected out the cystic artery circumferentially and then dissected the infundibular gallbladder off of the cystic plate until I had the critical view. At this point I then placed 2 clips proximally in the cystic duct and 2 clips distally high on the infundibular gallbladder. The cystic duct was divided with Endo Terrie. In a similar fashion cystic artery was clipped and divided as well taking great care not to injure the right hepatic artery. The gallbladder was then resected off the liver utilized electrocautery without spilling any bile or gallstones. Once the gallbladder was freed from the liver is placed into an Endo-Catch bag and brought out through the epigastric port site. The gallbladder and the multiple large gallstones within it were sent to pathology for examination. I then irrigated out the right upper quadrant the abdomen the gallbladder fossa copious amounts of sterile saline solution. Hemostasis was excellent there was no evidence of bile leak. I then aspirated the fluid from the right upper quadrant the abdomen from the pelvis. I then removed all the trocar ports under direct visualization all port sites appeared hemostatic. I then allowed the abdomen decompressed. The 10mm epigastric trocar port fascial defect was then closed utilizing 0 Vicryl suture placed in a [id number] fashion. All the port sites were irrigated with sterile saline solution and they were hemostati
== END 2022-10-07 18:40 | disposition home or self-care (01) ==
PROVIDERS: PCP Internal Medicine; Visit Provider Surgery
PROC: 0FT44ZZ Resection of Gallbladder, Percutaneous Endoscopic Approach (ICD-10-PCS; CPT 47562; principal; 2022-10-07 14:30)
DX: K80.10 Calculus of gallbladder with chronic cholecystitis without obstruction (principal); E66.9 Obesity, unspecified; Z68.30 Body mass index [BMI] 30.0-30.9, adult
CPT/HCPCS: 47562; 36415; 82150; 86850; 86900; 86901; 88304; A9270; C1713; J0690; J1100; J1885; J2250; J2405; J2704; J3010; J7120

== ENCOUNTER 2023-09-12 12:45 | Emergency (ER) | payer BC, SELFPAY ==
--- NOTE | ~2023-09-12 | XR_ITS ---
EXAMINATION: XR chest 1V portable INDICATION: Shortness of breath TECHNIQUE: Portable AP chest at 1314 hours COMPARISON: 07/30/2015 FINDINGS: The lungs are free of acute opacities. No pleural effusion or pneumothorax. The cardiomedia stinal silhouette is normal. IMPRESSION: 1. No acute cardiopulmonary abnormality. Reviewed, dictated and finalized at location [facility]
[2023-09-12 12:45] VITALS: BP 116/77; PULSE 100; RESP 18; TEMP 36.8; O2SAT 97
--- NOTE | 2023-09-12 13:15 | ED.URI ---
HPI - URI/Sore Throat General Chief Complaint: Upper Respiratory Infection Stated Complaint: flu; weak and sore throat Source: patient Mode of arrival: ambulatory Limitations: no limitations History of Present Illness HPI Narrative: This is a 33-year-old female with recently being diagnosed with influenza by her primary and was checked for COVID and strep which were both negative, patient continues to have a cough body aches, currently afebrile with some mild shortness of breath no chest pain does have some nasal congestion. MD elicited complaint: cough, sore throat and nasal congestion Onset (ago): day(s) Consistency: constant Severity: moderate Related Data Home Medications Medication Instructions Recorded Confirmed venlafaxine 75 mg capsule,extended 75 mg PO DIRECTED 09/17/22 10/06/22 release 24 hr Allergies Allergy/AdvReac Type Severity Reaction Status Date / Time Penicillins Allergy Severe Hives Verified 10/21/22 10:02 Review of Systems Review of Systems: All systems reviewed & are unremarkable except as noted in HPI and below PMFSH Past Medical History Medical History Hypothyroid Surgical History Surgical History History of delivery x3 History of hysterectomy Hx laparoscopic cholecystectomy 10/07/22 Family History Family History Other Hypertension Social History Social History Smoking status: Never smoker Alcohol intake: never Alcohol use details: rare Substance use: never Substance use type: does not use Living arrangements: with family Occupation/Education: occupation Additional occupation/education comments: [employer] Spiritual care concerns: No Exam Const: General: healthy appearing and no acute distress Nutritional Appearance: well nourished Limitations: no limitations HENMT: Head: normal to inspection Chest: Chest palpation & inspection: normal inspection of the chest Resp: Effort & Inspection: normal respiratory effort Auscultation: clear to auscultation bilaterally Cardio: Rate: regular rate Rhythm: regular rhythm GI: GI Palp: Yes Soft to palpation Skin: General skin exam: normal color Rashes: no rashes Course Course Emergency Course: X-ray performed shows no acute cardiopulmonary abnormality, strep test performed was negative, advised patient to take cough medicine follow-up primary. Vital Signs Vital signs: Vital Signs Temperature 36.8 C 09/12/23 12:45 Pulse Rate 100 09/12/23 12:45 Respiratory Rate 18 09/12/23 12:45 Blood Pressure 116/77 09/12/23 12:45 Pulse Oximetry 97 09/12/23 12:45 Oxygen Delivery Room Air 09/12/23 12:45 Temperature 36.8 C 09/12/23 12:45 Pulse Rate 100 09/12/23 12:45 Respiratory Rate 18 09/12/23 12:45 Blood Pressure 116/77 09/12/23 12:45 Pulse Oximetry 97 09/12/23 12:45 Oxygen Delivery Room Air 09/12/23 12:45 MDM - URI/Sore Throat Lab Data Labs: Lab Results 09/12/23 Range/Units 12:58 Group A Strep (PCR) Pending Critical Care Time Critical Care Time Critical Care Time: No Discharge Plan Discharge Clinical Impression: Influenza Patient Disposition: Home, Self-Care Condition: Stable Instructions: Antibiotic Form, Influenza (ED) Additional Instructions: Advised to get rest take Tylenol or Motrin for body aches or fever drink plenty of fluids take medicine as prescribed and follow up with primary if symptoms persist. Prescriptions: New benzonatate 200 mg capsule 200 mg PO TID Qty: 20 0RF No Action venlafaxine 75 mg capsule,extended release 24hr 75 mg PO DIRECTED Follow-up/Referrals: Jovanna Lancaster MD [Primary Care Provider] - Time of Disposition: 13:38
[2023-09-12 13:35] LABS: Strep Group A RT-PCR NOT DETECTED (Negative)
== END 2023-09-12 13:45 | disposition home or self-care (01) ==
PROVIDERS: Emergency Provider Emergency Medicine; PCP Internal Medicine
DX: J11.1 Influenza due to unidentified influenza virus with other respiratory manifestations (principal); E03.9 Hypothyroidism, unspecified
CPT/HCPCS: 71045; 87651; 99283